=== PATIENT | female | born 2000 | race Caucasian/White ===

== ENCOUNTER 2025-01-08 08:29 | Day surgery (SDC) | payer SELFPAY ==
[~2025-01-08 08:29] MED LIST: Albuterol 0.083% 2.5 MG/3 ML Neb Soln NEB PRN; HYDROmorphone 1 MG/ML Syringe IVPUSH PRN; Metoclopramide 10 MG/2 ML SDV IVPUSH PRN; Morphine 2 MG/ML SYRINGE IVPUSH PRN; Naloxone 0.4 MG/ML SDV IVPUSH PRN; Ondansetron 4 MG/2 ML SDV IVPUSH PRN; Phenylephrine HCl In 0.9% NaCl 1 MG/10 ML Syringe IVPUSH PRN; Scopalamine 1mg/3day Transdermal Patch TOP ONE; fentaNYL 50 MCG/ML SDV IVPUSH PRN
[2025-01-08 09:00] LABS: HEMATOCRIT 36.2 % (37.0-47.0); HEMOGLOBIN 11.2 g/dL (12.0-16.0); MEAN CORPUSCULAR HEMOGLOBIN 21.1 pg (28.0-32.0); MEAN CORPUSCULAR HGB CONC 30.9 g/dL (32.0-36.0); MEAN PLATELET VOLUME 8.9 fL (9.4-12.3); PLATELET COUNT,PLT 480 K/uL (150-400); RED BLOOD CELL COUNT 5.32 M/uL (4.10-5.30); WHITE BLOOD CELL COUNT,WBC 9.37 K/uL (3.9-11.3)
[2025-01-08] MEDS: Lactated Ringers 1,000 ML IV SCH (09:02)
[2025-01-08] MEDS ORDERED: Iodine/Potassium Iodide 5% Solution 14 ML Bottle ONE (09:05)
[2025-01-08] MEDS ORDERED: Lidocaine 1% with EPINEPHrine 1:100,000 10 ML MDV ONE (09:05)
[2025-01-08] MEDS ORDERED: Ferric Subsulfate Topical Soln 8 GM (8 ML) Bottle ONE (09:05)
[2025-01-08] MEDS: Scopalamine 1mg/3day Transdermal Patch TOP ONE (09:08)
[2025-01-08] MEDS ORDERED: propofoL 500 MG/50 ML 50 ML ONE (09:20)
[2025-01-08] MEDS ORDERED: fentaNYL 100 MCG/2 ML SDV ONE (09:21)
[2025-01-08] MEDS ORDERED: Ondansetron 4 MG/2 ML SDV ONE (09:52)
[2025-01-08] MEDS ORDERED: Dexamethasone 4 MG/ML 5 ML MDV ONE (09:52)
[2025-01-08] MEDS ORDERED: dexmedeTOMIDine HCl 200 MCG/2 ML SDV ONE (09:59)
[2025-01-08] MEDS ORDERED: Ketorolac 30 MG/ML SDV ONE (10:09)
[2025-01-08] MEDS ORDERED: Midazolam 1 MG/ML 2 ML SDV ONE (10:33)
[2025-01-08] MEDS ORDERED: HYDROmorphone 1 MG/ML Syringe ONE (10:38)
== END 2025-01-08 12:45 | disposition home or self-care (01) ==
LOC: MW.SDS 08:29
PROVIDERS: ATTEND Obstetrics & Gynecology
DX: D06.0 Carcinoma in situ of endocervix (principal); N72 Inflammatory disease of cervix uteri
CPT/HCPCS: 36415; 57460; 84703; 85027; A9270; J0131; J1100; J1171; J1885; J2405; J2704; J3010; J7120; 00940; J3490